=== PATIENT | female | born 1990 | race Caucasian/White ===

== ENCOUNTER 2016-09-04 19:34 | Emergency (ER) | payer OTHER | END 2016-09-04 20:17 | disposition home or self-care (01) | LOC: ER 19:34 | DX: S93.402A Sprain of unspecified ligament of left ankle, initial encounter (principal); X50.1XXA Overexertion from prolonged static or awkward postures, initial encounter; Z79.899 Other long term (current) drug therapy; Z91.030 Bee allergy status ==